=== PATIENT | female | born 1960 | race Two or more races ===

== ENCOUNTER 2024-10-15 08:09 | Emergency (ER) | payer MEDICAID, SELFPAY ==
[2024-10-15 08:25] VITALS: BP 161/93; PULSE 77; RESP 17; TEMP 36.5; O2SAT 97; BMI 31.1
--- NOTE | 2024-10-15 08:29 | XR_ITS ---
Examination: CT brain head without contrast. 2-D sagittal coronal reconstructions Date and time of exam:October 15, 2024 0840 hours Comparison January 20, 2015 CTDI: vol (mGy):44.6 DLP: (mGycm):898 INDICATIONS: Intermittent severe head pain beginning one month ago Technique: Multiple CT axial sections of the brain have been obtained, 5 mm slice thickness. Contrast has not been administered. 2-D sagittal, coronal reconstructions have been obtained Low dose protocols were performed. One or more of the following dose reduction techniques were used; automated exposure control, adjustment of the mA and/or KV according to patient size, use of iterative reconstruction technique. Findings: No significant ventricular enlargement. Intra-axial or extra-axial hemorrhage density is not seen. No mass effect or midline shift Basal cisterns are not remarkable. Fourth ventricle is midline. Cranial vault intact. Impression: Negative for acute hemorrhage, mass effect or midline shift If intermittent new onset severe head pain persists, consider brain MRI follow-up
[2024-10-15] MEDS: HYDROcodone/APAP 5/325 TABLET 1 TAB PO (08:35)
[2024-10-15] MEDS: METOCLOPRAMIDE 5 MG TABLET 10 MG PO (08:38)
[2024-10-15] MEDS: DiphenhydrAMINE 25 MG CAPSULE PO (08:39)
[2024-10-15 08:55] LABS: Basophils % (Auto) 0 % (0-2.5); Eosinophils # (Auto) 0.2 Thou/mm3 (0.0-0.5); Eosinophils % (Auto) 3 % (0-10); Hematocrit 40.4 % (36.0-46.0); Immature Granulocytes % (Auto) 0 % (0-0); Immature Granulocytes Auto 0.02 Thou/mm3 (0.00-0.00); Lymphocytes % (Auto) 30 % (10-50); Mean Corpuscular HGB Conc 34.7 g/dl (31.0-37.0); Mean Corpuscular Hemoglobin 29.6 pg (25.0-35.0); Mean Corpuscular Volume 85 fL (80-100); Monocytes # (Auto) 0.6 Thou/mm3 (0.0-0.8); Monocytes % (Auto) 9 % (0-12); Neutrophils # (Auto) 3.7 Thou/mm3 (1.8-7.7); Neutrophils % (Auto) 57 % (37-80); Nucleated Red Blood Cell % 0 /100 WBC (0); Platelet Count 226 Thou/mm3 (140-440); RDW Standard Deviation 38.4 fL (36.4-46.3); Red Blood Count 4.73 Miln/mm3 (4.00-5.20); White Blood Count 6.5 Thou/mm3 (3.6-11.0)
[2024-10-15 09:24] LABS: Alanine Aminotransferase 16 U/L (10-49); Albumin, Serum 4.6 gm/dL (3.4-4.8); Albumin/Globulin Ratio 1.8 (1.2-2.2); Alkaline Phosphatase 70 U/L (46-116); Anion Gap 2 (7-16); Aspartate Amino Transferase 19 U/L (0-34); BUN/Creatinine Ratio 15 Ratio (12-20); Bilirubin,Total 0.9 mg/dL (0.3-1.2); Blood Urea Nitrogen 12 mg/dL (9-23); Calcium 9.7 mg/dL (8.3-10.6); Calcium (Corrected) 9.7 mg/dL (8.5-10.1); Carbon Dioxide 32.2 mMol/L (20.0-31.0); Chloride 103 mMol/L (98-107); Creatinine (Component) 0.8 mg/dL (0.6-1.3); Estimated Creatinine Clearance 70.1 mL/min (>60); Globulin 2.5 gm/dL (2.3-3.5); Glucose 119 mg/dL (74-106); Osmolality,Calculated 274 (275-295); Sodium 137 mMol/L (136-145); Total Protein 7.1 gm/dL (5.7-8.2); eGFR > 60 See Note
--- NOTE | 2024-10-15 10:16 | PD.EDHA ---
ED Headache RME/HPI General Chief Complaint: Headache Stated Complaint: Headache X 7 weeks Time Seen by Provider: 10/15/24 08:13 Arrival date/time: 10/15/24 08:09 64-year-old female presents to the emergency department complaints of headache ongoing for the last 7 to 8 weeks patient reports she has seen her primary care doctor they put her on sumatriptan without relief. Patient reports no fever nausea vomiting no dizziness no weakness no neck pain Limitations: no limitations Related Data Home Medications ?Medication ?Instructions ?Recorded ?Confirmed amlodipine 10 mg tablet (Norvasc) 10 mg PO QDAY #0 tabs 11/14/16 03/06/21 naproxen 500 mg tablet (Naprosyn) 500 mg PO BID PRN Pain 03/06/21 03/06/21 omeprazole 40 mg capsule,delayed 40 mg PO QDAY 03/06/21 03/06/21 release Previous Rx's ?Medication ?Instructions ?Recorded acetaminophen-caffeine 500 mg-65 1 tab PO Q6H PRN pain #30 tabs 10/15/24 mg tablet (Excedrin Tension Headache) ibuprofen 800 mg tablet 800 mg PO TID PRN pain #30 tabs 10/15/24 Allergies Allergy/AdvReac Type Severity Reaction Status Date / Time No Known Allergies Allergy Verified 02/26/23 07:40 Review of Systems Review of Systems Systems Reviewed: All systems reviewed, normal except as documented Constitutional Constitutional: Reports system reviewed and no additional complaints, except as documented, Denies fever(s), Reports headache(s) and Denies weakness Eyes Eyes: Reports system reviewed and no additional complaints, except as documented and Denies blurry vision ENT Ears, Nose, Mouth, and Throat: Reports system reviewed and no additional complaints, except as documented, Reports headache(s), Denies nasal congestion, Denies nasal discharge and Denies vertigo Cardiovascular Cardiovascular: Reports system reviewed and no additional complaints, except as documented, Denies chest pain, Denies dyspnea and Denies syncope Respiratory Respiratory: Reports system reviewed and no additional complaints, except as documented, Denies chest congestion, Denies cough and Denies dyspnea Gastrointestinal Gastrointestinal: Reports system reviewed and no additional complaints, except as documented and Denies abdominal pain Musculoskeletal Musculoskeletal: Denies tingling Integumentary/Breasts Skin/Breast: Reports system reviewed and no additional complaints, except as documented and Denies rash Neurologic Neurologic: Reports system reviewed and no additional complaints, except as documented, Reports as per HPI, Reports headache(s), Denies syncope, Denies tingling, Denies vertigo and Denies weakness Past Medical History Past Medical History NEUROLOGIC: Negative Neurological Disorders or Seizures CARDIAC: Positive Cardiac Disorders, Hypercholesterolemia, Edema (AT TIMES BUT NOT TODAY) and Hypertension; Negative Congestive Heart Failure RESPIRATORY: Negative Chronic Obstructive Pulmonary Disease (COPD) GASTROINTESTINAL: Positive Gastrointestinal Disorders, Colitis, Hemorrhoids and Gastroesophageal Reflux Disease; Negative Hepatitis GENITOURINARY: Negative Genitourinary Disorders or Renal Disease REPRODUCTIVE: Positive Previous Pregnancies (X6) MUSCULOSKELETAL: Positive Musculoskeletal Disorders and Arthritis ENT: Positive Cataracts (BILAT) ENDOCRINE: Negative Endocrine Disorders, Diabetes Mellitus Type 1 or Diabetes Mellitus Type 2 HEMATOLOGIC: Negative Blood Disorders OTHER HISTORY: Positive Chicken Pox and Measles; Negative Hospitalization, Autoimmune Disease, Shingles, Falls, Blood Transfusions, Blood Transfusion Reaction, Anesthesia Reactions, Chemotherapy, Radiation Therapy, MRSA, Mumps or Cancer Family History FAMILY HISTORY: Positive Family Cardiac Disorders (MOTHER (HTN, HIGH CHOLESTEROL)), Family Cancer (MOTHER (LYMPHOMA CA) SISTER (STOMACH/LIVER CA), BROTHER (UNKNOWN CA)) and Family Surgery (UNKNOWN WHAT TIME OF SURGERIES); Negative Family Psychiatric Problems, Family Respiratory Disorders, Family Gastrointestinal Problems or Family Anesthesia Reaction Surgical History SURGICAL: Positive Nose Surgery, Tonsillectomy, Tubal Ligation and Section (X2); Negative Cardiac Surgery, Endocrine Surgery, Ear Surgery, Joint Replacement or Neurologic Surgery Social History SMOKING STATUS: Former smoker ED Exam General Limitations: Present no limitations General appearance: Present alert and in no apparent distress Head Head exam: Present atraumatic, normocephalic and normal inspection Eye Eye exam: Present normal appearance, PERRL and EOMI; Absent conjunctival injection ENT ENT exam: Present normal exam, normal oropharynx and mucous membranes moist Neck Neck exam: Present normal inspection, full ROM and trachea midline Chest Chest inspection: Present normal inspection and symmetric chest wall rise Respiratory Respiratory exam: Present normal lung sounds bilaterally; Absent respiratory distress Cardiovascular Cardiovascular exam: Present regular rate, normal rhythm and normal heart sounds Abdominal Exam Abdominal exam: Present soft and normal bowel sounds Extremities Exam Extremities exam: Present normal inspection and full ROM Back Exam Back exam: Present normal inspection and full ROM Neurological Exam Neurological exam: Present alert, oriented X3, CN II-XII intact, normal gait and reflexes normal; Absent motor sensory deficit Psychiatric Psychiatric exam: Present normal affect and normal mood Skin Skin exam: Present warm, dry, intact and normal color Course Quality Measures none Orders Category Date Time Status CT head/brain wo con Stat Exams 10/15/24 08:29 Completed CBC Stat Lab 10/15/24 08:46 Completed CMP [Comprehensive Metabolic Panel] Stat Lab 10/15/24 08:46 Completed DiphenhydrAMINE [Benadryl] Med 10/15/24 08:29 Discontinued 25 mg PO X1 ONE HYDROcodone*/APAP 5/325 [[place] 5/325] Med 10/15/24 08:29 Discontinued 1 tab PO X1 ONE Ketorolac Inj [Toradol Inj] Med 10/15/24 10:20 Discontinued 30 mg IM X1 ONE Metoclopramide [Reglan] Med 10/15/24 08:29 Discontinued 10 mg PO X1 ONE Vital Signs Vital signs: Vital Signs Temperature 97.7 F 10/15/24 08:25 Pulse Rate 77 10/15/24 08:25 Respiratory Rate 17 10/15/24 08:25 Blood Pressure 161/93 H 10/15/24 08:25 Pulse Oximetry (%) 97 10/15/24 08:25 Oxygen Delivery Method Room Air 10/15/24 08:25 O2 saturation 97% room air within normal limits Headache MDM Narrative MDM Narrative:: 64-year-old female presents to the emergency department complaints of headache ongoing for the last 7 to 8 weeks patient reports she has seen her primary care doctor they put her on sumatriptan without relief. Patient reports no fever nausea vomiting no dizziness no weakness no neck pain On exam patient well-appearing patient does not appear ill or toxic in no acute distress Patient walks with steady gait no abnormal neurological findings Lab work and CT scan obtained no acute emergent findings noted Patient discharged home in no distress to follow-up with primary care doctor in the next 24 to 48 hours and for any worsening symptoms to return to the ER immediately Patient data External records reviewed:: [facility] previous records Clinical information provided by:: patient Social determinants that could affect healthcare access:: none Patient has the following chronic illnesses:: See history How is presenting disease/condition affected by chronic disease/condition?: no chronic disease Evaluation data The following diagnostics were reviewed and interpreted by me:: lab results and radiology exam(s) Lab and/or radiology exams considered but not ordered:: Labs and radiology obtained Interpretation Summary: Reviewed by me Medications / Prescriptions Medications or Prescriptions considered but not ordered:: Given Medication administrations:: Medication Administration History Discontinued Medications Hydrocodone Bitart/Acetaminophen (Hydrocodone/Apap 5/325 Tablet) 1 tab PO X1 ONE Stop: 10/15/24 08:30 Last Admin: 10/15/24 08:35 Dose: 1 tab Documented By: YUDY Diphenhydramine HCl (Diphenhydramine 25 Mg Capsule) 25 mg PO X1 ONE Stop: 10/15/24 08:30 Last Admin: 10/15/24 08:39 Dose: 25 mg Documented By: YUDY Ketorolac Tromethamine (Ketorolac Inj 30 Mg/Ml Vial) 30 mg IM X1 ONE Stop: 10/15/24 10:21 Metoclopramide HCl (Metoclopramide 5 Mg Tablet) 10 mg PO X1 ONE Stop: 10/15/24 08:30 Last Admin: 10/15/24 08:38 Dose: 10 mg Documented By: YUDY Given Consultations Consultation(s) initiated? (list below): No Diagnosis Differential diagnosis headache: migraine, tension headache and subarachnoid hemorrhage Most likely diagnosis given after review of the tests above:: Headache Admission Indicated Admission indicated?: not indicated Admission Request Was there a request for admission?: No Disposition Plan Disposition Plan: Discharge Discharge Attestation Discharge Attestation: The patient and all family members were given an opportunity to ask questions and understood the discharge instructions. Discharge instructions specifically effects, indications for sooner follow up or return to the emergency department, and the expected course of current diagnosis. Patient condition: Stable Discharge Plan Plan Patient Disposition: HOME (Self Care) Disposition Comment: Stable Prescriptions/Referrals Prescriptions/Med Rec: New Excedrin Tension Headache 500-65 mg tablet 1 tab PO Q6H PRN (Reason: pain) Qty: 30 0RF ibuprofen 800 mg tablet 800 mg PO TID PRN (Reason: pain) Qty: 30 0RF No Action amlodipine [Norvasc] 10 MG tablet 10 mg PO QDAY Qty: 0 omeprazole 40 mg Capsule,Delayed Release(Dr/Ec) 40 mg PO QDAY naproxen [Naprosyn] 500 MG tablet 500 mg PO BID PRN (Reason: Pain) Rx Instructions: PRN inflammation Referrals: Jerry Dickerson MD [Primary Care Provider] - 11/22/24 Problem List Clinical Impression: Headache Patient/Caregiver Discharge Instructions Education Materials: Self-Care for Headaches Additional Instructions: Please follow-up primary care doctor request referral to neurology for worsening symptoms return immediately Print Language: Mohawk Stand Alone Forms: Vikki Award Info., Patient Portal Info Letter PA/WRAPPER COUNTER Supervising Physician PA/WRAPPER COUNTER Supervising Physician: Dr. Ray
[2024-10-15 10:21] VITALS: BP 148/92; PULSE 60; RESP 18; TEMP 36.6; O2SAT 98
[2024-10-15] MEDS: KETOROLAC INJ 30 MG/ML VIAL IM (10:32)
== END 2024-10-15 10:35 | disposition home or self-care (01) ==
PROVIDERS: Nurse Practitioner Primary Care; Emergency Provider Emergency Medicine; PCP Family Medicine
DX: R51.9 Headache, unspecified (principal)
CPT/HCPCS: 36415; 70450; 80053; 85025; 96372; 99284; J1885; A9270

== ENCOUNTER 2024-11-13 08:25 | Day surgery (SDC) | payer MEDICAID, SELFPAY ==
--- NOTE | 2024-11-12 10:58 | EKG_ITS ---
[facility] Test Date: 2024-11-12 Pat Name: BASIM CARR Department: Room: - Gender: Female Territory Account Representative: ROSALINO : 1965-01-21 Requested By: Angel Rivera Order Number: [id number] Reading MD: Angel Rivera Measurements Intervals [place] Rate: 59 P: 30 [place]: 137 QRS: 36 QRSD: 73 T: 43 QT: 403 QTc: 400 Interpretive Statements SINUS BRADYCARDIA POSSIBLE ANTERIOR MYOCARDIAL INFARCTION , PROBABLY OLD No previous ECG available for comparison /[id number]/[email or web address]/[id number]/[id number].pdf
[2024-11-12 11:03] VITALS: BMI 32.4
[2024-11-12 12:31] LABS: Basophils % (Auto) 1 % (0-2.5); Eosinophils # (Auto) 0.1 Thou/mm3 (0.0-0.5); Eosinophils % (Auto) 2 % (0-10); Hematocrit 42.2 % (36.0-46.0); Hemoglobin 14.5 g/dL (12.0-16.0); Immature Granulocytes % (Auto) 0 % (0-0); Immature Granulocytes Auto 0.03 Thou/mm3 (0.00-0.00); Lymphocytes # (Auto) 2.3 Thou/mm3 (1.0-4.8); Lymphocytes % (Auto) 32 % (10-50); Mean Corpuscular HGB Conc 34.4 g/dl (31.0-37.0); Mean Corpuscular Volume 87 fL (80-100); Monocytes # (Auto) 0.6 Thou/mm3 (0.0-0.8); Monocytes % (Auto) 8 % (0-12); Neutrophils # (Auto) 4.1 Thou/mm3 (1.8-7.7); Neutrophils % (Auto) 58 % (37-80); Nucleated Red Blood Cell % 0 /100 WBC (0); Platelet Count 236 Thou/mm3 (140-440); RDW Standard Deviation 39.5 fL (36.4-46.3); Red Blood Count 4.83 Miln/mm3 (4.00-5.20); White Blood Count 7.2 Thou/mm3 (3.6-11.0)
[2024-11-12 12:41] LABS: Partial Thromboplastin Time 28.5 Seconds (22.0-36.0); Prothrombin Time 10.5 Seconds (9.0-12.2)
[2024-11-12 12:45] LABS: Alanine Aminotransferase 21 U/L (10-49); Albumin, Serum 4.8 gm/dL (3.4-4.8); Albumin/Globulin Ratio 1.7 (1.2-2.2); Alkaline Phosphatase 67 U/L (46-116); Anion Gap 7 (7-16); Aspartate Amino Transferase 19 U/L (0-34); BUN/Creatinine Ratio 17 Ratio (12-20); Bilirubin,Total 0.6 mg/dL (0.3-1.2); Blood Urea Nitrogen 12 mg/dL (9-23); Calcium 10.4 mg/dL (8.3-10.6); Calcium (Corrected) 10.4 mg/dL (8.5-10.1); Carbon Dioxide 29.1 mMol/L (20.0-31.0); Chloride 101 mMol/L (98-107); Creatinine (Component) 0.7 mg/dL (0.6-1.3); Estimated Creatinine Clearance 81.9 mL/min (>60); Globulin 2.8 gm/dL (2.3-3.5); Glucose 107 mg/dL (74-106); Osmolality,Calculated 273 (275-295); Potassium 4.4 mMol/L (3.4-5.1); Sodium 137 mMol/L (136-145); Total Protein 7.6 gm/dL (5.7-8.2); eGFR > 60 See Note
[2024-11-13] VITALS (9 sets, daily range): BP systolic 130–150; BP diastolic 75–89; PULSE 65–89; RESP 15–20; TEMP 36.6–36.7; O2SAT 96–100; BMI 32.1
--- NOTE | 2024-11-13 07:49 | ESHP_ITS ---
RE: BASIM CARR : 1960 DATE OF ADMISSION: 11/12/2024 HISTORY OF PRESENT ILLNESS: The patient presented to me with history of pain in the right shoulder. This pain is going on for more than one year or so. The intensity of pain is graded to be 9/10. The patient is unable to sleep. The right shoulder is extremely painful and the pain radiates towards the neck as well as towards the arm. The quality of life and activities of daily living is affected. Range of motion is also severely restricted. Unable to sleep at night. PAST MEDICAL HISTORY: The patient has a history of high blood pressure and high cholesterol. PAST SURGICAL HISTORY: Cholecystectomy, appendectomy, tonsillectomy. DRUG HISTORY: The patient is on, 1. Losartan 2. Sumatriptan 3. Atorvastatin ALLERGIES: NIL KNOWN. FAMILY HISTORY AND SOCIAL HISTORY: The patient denies smoking or drinking. The patient is part-time employed. PHYSICAL EXAMINATION: GENERAL: Normal built lady. BMI is 32.0. VITAL SIGNS: Pulse 72 per metal blood pressure 136/84. NECK: Soft, supple. No mass felt. Trachea is central replaced. CARDIOVASCULAR: First and second hearts are normal. No murmur heard. RESPIRATORY: Bilateral vesicular breath sounds. CHEST: Clear. ABDOMEN: Soft. No muscle spasm. Bowel sounds present. BREASTS: Breast exam is not indicated in this case. The patient is advised to see the family physician for rectal examination. EXTREMITIES: Right shoulder examination revealed 2+ tenderness at AC joint. Range of motion is 0 to 100 degrees of abduction and 0 to 100 degrees of forward flexion. Internal rotation is very painful and restricted. The patient has weak fist and solar consultant. DIAGNOSTIC DATA: MRI scan of the right shoulder revealed complete tear of the rotator cuff. There is 20 mm full-thickness tear. 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 Retraction of the supraspinatus muscle is significant. There is atrophy of the supraspinatus and infraspinatus, which is severe. DJD of the AC joint was present. ASSESSMENT AND PLAN: Since the patient is symptomatic and has torn rotator cuff, therefore, open right shoulder rotator cuff repair with Ashley procedure was discussed and advised. With the help of pictures and diagram, it was explained to the patient in detail. All questions were answered. Risks with anesthesia was explained and that includes, but not limited to reaction to anesthetic agents, cardiac arrest, rarely it might be fatal. Risk with outpatient includes infection and if that happens, the patient may need further surgical pressure. Other risks include delayed healing, wound descendants, etc. Sometimes rare complication happens and if that happens, that has to be taken care of. Indeed, the physical therapy is very important component for the successful outcome of the procedure and full cooperation will help in regaining good range of motion and the patient is fully aware of that. All lab work is done. Surgery booked for 11/13/2024. DT: 12:09:47 TT: 15:21:00 Ref: [id number] - TID: [id number]
[2024-11-13] MEDS: RINGERS LACTATED 1000 ML 1,000 ML 20 ML IV (09:22)
--- NOTE | 2024-11-13 09:38 | CHAP ---
Patient expressed gratitude for prayer before their procedure.
--- NOTE | 2024-11-13 11:15 | ESOP_ITS ---
Date of Procedure 11/13/24 Pre Op Diagnosis 1. Right shoulder impingement syndrome 2. Right rotator cuff tear Post Op Diagnosis Same Procedure 1. Excision lateral end of the clavicle 2 excision coracoacromial ligament 3 acromioplasty 4 repair of rotator cuff 5 manipulation under anesthesia Findings Patient has significant DJD at AC joint with osteophytes projecting inferiorly touching the rotator cuff. The rotator cuff showed an oval tear but most of the fibers were attached to greater tuberosity. The acromion process showed 3 to 4 mm size osteophytes anteriorly and 2 to 3 mm size osteophytes laterally Procedure Description The patient was given general endotracheal anesthesia. Right shoulder block was also given. Once satisfactory anesthesia was achieved patient was put in about 45?? sitting position with sandbag underneath the right the capsule of the AC joint was taken and an inferior osteophyte was hitting the rotator shoulder blade. The part was thoroughly prepped and draped. A skin incision was made at the AC joint extending proximally towards the neck for a half inches and distally towards the arm for about couple of inches. Deeper dissection was carried out. Bleeding vessels were electrocoagulated as and when encountered. The soft tissue was reflected. Following that AC joint was exposed and AC joint was exposed. The deltoid muscle was reflected from the anterior and lateral aspect of the acromial process. There was 3 to 4 mm long anterior osteophytes and 2 to 3 mm long lateral osteophytes coming out from the acromial process Following that a periosteal elevator was placed underneath the lateral end of the clavicle and lateral 3-4 mm was excised. The coracoacromial ligament was removed. With the help of curved osteotome the undersurface of the Acromial processes was chiseled out. That made more room between the superior surface of the head of the humerus and undersurface of the acromial process. Following that the rotator cuff was inspected. It revealed an full range of abduction and forward flexion was achieved. Oval tear, however most of the fibers were attached to th e greater tuberosity. Wound was irrigated with antibiotic solution every 4-5 minutes. The left shoulder was manipulated at this time. The rotator cuff tear was repaired with 2-0 Vicryl. 2 drill holes were made on the acromial process and deltoid muscle was stitched back to it. Some reinforcement sutures were placed. The subcutaneous tissue was then closed with the help of 2-0 Vicryl and 3-0 Vicryl in layers. The skin was closed with brianna. After cleaning the wound with hydrogel proximal solution and sterile dressing was applied. Patient was taken to the recovery room in good condition. Estimated blood loss 20 mL. Prognosis in this case is good. Anesthesia GETA and other Pathology / specimen None Estimated Blood Loss 20 Surgeon Angel Pascal MD Surgical Staff Operation Date: 11/13/24 11:00 Case Staff Anesthesiologist: Lam Beltran RNlithographic artist: Mana Lopez
--- NOTE | 2024-11-13 12:08 | SUR.PHASEI ---
1117: Pt received in [facility] via gurney. Report from Ricky HOWARD and Dr. Beltran. Pt groggy, but awake. Resp even, unlabored. VS stable. Dressing to right shoulder dry, clean, intact. Right radial pulse strong, regular. No c/o pain. 1145: Pt has been resting with no complaints voiced. Resp has remained regular, unlabored. VS stable. Dressing unchanged. Denies pain.
--- NOTE | 2024-11-13 14:36 | SUR.PHASEII ---
1205: Pt has been resting with no complaints voiced. Resp even, unlabored. VS stable. Dressing dry, clean, intact. Right radial pulse strong, regular. Denies pain. 1230: Pt more awake, alert. Sitting up tolerating po fluids with no difficulty swallowing and no n/v. 1250: Pt fully awake, oriented x3. VS stable. Dressing remains dry, clean, intact. Pt dressed and assisted to transport chair. Ambulation steady. Pt and friend stated understanding of discharge instructions. Pt also instructed to sampler pickup his prescription at [facility] on [facility]. Pt discharged [facility] in stable condition.
--- NOTE | 2024-11-16 14:50 | PD.ANESPROG ---
Documentation for date of: 11/16/24 POST ANESTHESIA NOTE: Patient had general LMA anesthesia with R interscalene nerve block for R rotator surgery on 11/13/24. I just called her number and she answered but did not speak [place], so I called again through yield engineer twice but she did not answer. Lam Beltran MD Anesthesia Progress Note Progress Note Most recent Vital Signs: Last Vital Signs Temp 98.0 F 11/13/24 12:20 Pulse 78 11/13/24 12:20 Resp 16 11/13/24 12:20 BP 138/75 H 11/13/24 12:20 Pulse Ox 100 11/13/24 12:20
== END 2024-11-13 12:50 | disposition home or self-care (01) ==
PROVIDERS: Anesthesiology; PCP Family Medicine; Referring Provider Orthopaedic Surgery; Visit Provider Orthopaedic Surgery
PROC: (CPT 23412; principal; 2024-11-13 10:45)
DX: M75.101 Unspecified rotator cuff tear or rupture of right shoulder, not specified as traumatic (principal); E78.00 Pure hypercholesterolemia, unspecified; M75.41 Impingement syndrome of right shoulder; Z01.810 Encounter for preprocedural cardiovascular examination
CPT/HCPCS: 23412; 23120; 36415; 80048; 80053; 85025; 85610; 85730; 93005; A4217; A4649; J1100; J1580; J2250; J2704; J2765; J2795; J3010; J3490; J7120

== ENCOUNTER → 2025-10-12 | Outpatient (CLI) | payer MEDICAID, SELFPAY ==
--- NOTE | 2025-10-12 09:15 | XR_ITS ---
Examination: Breast ultrasound complete, bilateral Date and time of exam: October 12, 2025, 0920 hours, comparison July 02, 2024 INDICATIONS: Left breast pain 5 years Technique: Real-time grayscale ultrasonographic imaging bilateral breasts, including all 4 quadrants as well as nipple retroareolar and axillary regions. Findings: Sonographic images right breast Benign cysts No solid nodules Left breast no cystic or solid mass IMPRESSION: BI-RADS Category 2: Benign findings
--- NOTE | 2025-10-12 10:15 | XR_ITS ---
Examination: Diagnostic digital mammography, bilateral Computer aided detection 3-D breast Tomosynthesis, bilateral Date and time of exam: October 12, 2025, 0958 hours, compared to mammograms dating to June 17, 2014h Technique: Nonmagnified MLO, CC views of the breasts to been obtained, reconstructed from 3-D Tomosynthesis images. R2 computer aided detection program utilized for evaluation of suspicious masses and/or abnormal calcifications. 3-D Tomosynthesis images obtained. Findings: The breasts are heterogeneously dense, which may obscure small masses 10 mm nodule 12 o'clock position right breast partially indistinct margins 14 mm nodule lobular margins upper outer left breast Impression: BI-RADS Category 0: Incomplete: Need additional imaging evaluation Recommend follow-up spot tomographic views of 10 mm nodule 12 o'clock position right breast and 14 mm nodule lobular margins upper outer left breast.
== END | disposition home or self-care (01) ==
DX: N63.15 Unspecified lump in the right breast, overlapping quadrants (principal); N63.21 Unspecified lump in the left breast, upper outer quadrant
CPT/HCPCS: 76641; 77062; 77066; G0279

== ENCOUNTER → 2025-11-23 | Outpatient (CLI) | payer MEDICAID, SELFPAY ==
--- NOTE | 2025-11-23 11:45 | XR_ITS ---
Examination: Diagnostic digital mammography, bilateral Computer aided detection 3-D breast Tomosynthesis, bilateral Date and time of exam: 11/23/2025, 11:06 a.m. Comparisons: October 2015 through September 2025 Indications: Further evaluation of nodule 12:00 right breast.Further evaluation of left upper outer quadrant nodule Technique: Nonmagnified MLO, CC views of the breasts to been obtained, reconstructed from 3-D Tomosynthesis images. R2 computer aided detection program utilized for evaluation of suspicious masses and/or abnormal calcifications. 3-D Tomosynthesis images obtained. Findings: The breasts are heterogeneously dense, which may obscure small masses. No evidence of abnormal masses or suspicious calcifications. The previously described abnormalities do not persist on spot compression views and represents superimposition of normal fibroglandular tissue Impression: BI-RADS category 1: Negative findings (within normal) Recommend 1 year follow-up mammogram
== END | disposition home or self-care (01) ==
LOC: CDIM 10:51
DX: R92.313 Mammographic fatty tissue density, bilateral breasts (principal)
CPT/HCPCS: 77062; 77066; G0279